=== PATIENT | male | born 1955 ===

== ENCOUNTER 2017-04-26 07:27 | Emergency (ER) | payer OTHER ==
[~2017-04-26] VITALS: Ht 165.1 cm; Wt 76.2 kg
[2017-04-26] MEDS ORDERED: COZAAR25 MG (08:12)
== END 2017-04-26 11:37 | disposition home or self-care (01) ==
LOC: ER 07:27
DX: J02.9 Acute pharyngitis, unspecified (principal)

== ENCOUNTER → 2017-06-27 | Outpatient (CLI) | payer OTHER ==
[~2017-06-27] MED LIST: COZAAR25 MG
== END | disposition home or self-care (01) ==
LOC: MRI 08:45
DX: M75.32 Calcific tendinitis of left shoulder (principal); S76.212S Strain of adductor muscle, fascia and tendon of left thigh, sequela
CPT/HCPCS: 73718

== ENCOUNTER 2017-07-24 07:09 | Outpatient (CLI) | payer OTHER | END 2017-07-24 15:49 | disposition home or self-care (01) | LOC: SONOGRAMA 07:09 | DX: R16.0 Hepatomegaly, not elsewhere classified (principal) ==

== ENCOUNTER → 2018-07-14 | Outpatient (CLI) | payer OTHER | END | disposition home or self-care (01) | LOC: MRI 10-18 07:18 → RAD 08:42 | DX: M19.071 Primary osteoarthritis, right ankle and foot (principal) ==

== ENCOUNTER 2018-09-08 14:33 | Outpatient (CLI) | payer OTHER | END 2018-09-09 10:07 | disposition home or self-care (01) | LOC: SONOGRAMA 14:33 | DX: M71.21 Synovial cyst of popliteal space [Baker], right knee (principal) ==

== ENCOUNTER 2021-06-12 08:00 | Outpatient (CLI) | payer OTHER | END 2021-06-12 08:30 | disposition home or self-care (01) | LOC: PPH VACUNA 08:00 | PROVIDERS: ATTEND Emergency Medicine Pediatric Emergency Medicine | DX: Z23 Encounter for immunization (principal) ==

== ENCOUNTER 2021-12-05 10:29 | Outpatient (CLI) | payer OTHER | END 2021-12-05 10:39 | disposition home or self-care (01) | LOC: PPH VACUNA 10:29 | PROVIDERS: ATTEND Emergency Medicine Pediatric Emergency Medicine | DX: Z23 Encounter for immunization (principal) ==

== ENCOUNTER 2022-02-07 08:34 | Outpatient (CLI) | payer OTHER | END 2022-02-07 09:00 | disposition home or self-care (01) | LOC: MRI 08:34 | PROVIDERS: ATTEND Radiology Diagnostic Radiology | DX: M25.561 Pain in right knee (principal) | CPT/HCPCS: 73721 ==

== ENCOUNTER 2022-09-06 09:12 | Outpatient (CLI) | payer OTHER | END 2022-09-06 15:16 | disposition home or self-care (01) | LOC: RAD 09:12 | PROVIDERS: ATTEND Radiology Diagnostic Radiology | DX: M25.569 Pain in unspecified knee (principal) ==

== ENCOUNTER 2023-05-07 11:08 | Outpatient (CLI) | payer OTHER | END 2023-05-07 11:30 | disposition home or self-care (01) | LOC: RAD 11:08 | DX: M25.562 Pain in left knee (principal); M25.561 Pain in right knee ==

== ENCOUNTER 2024-03-25 08:44 | Outpatient (CLI) | payer OTHER | END 2024-03-25 15:12 | disposition home or self-care (01) | LOC: MRI 08:44 | PROVIDERS: ATTEND Radiology Diagnostic Radiology | DX: S83.241A Other tear of medial meniscus, current injury, right knee, initial encounter (principal) | CPT/HCPCS: 73721 ==

== ENCOUNTER 2024-10-19 08:55 | Outpatient (CLI) | payer OTHER | END 2024-10-19 08:59 | disposition home or self-care (01) | LOC: RAD 08:55 | PROVIDERS: ATTEND Radiology Diagnostic Radiology | DX: M25.569 Pain in unspecified knee (principal) ==